=== PATIENT | female | born 1960 | race Caucasian/White ===

== ENCOUNTER 2020-01-30 08:44 | Outpatient (CLI) | payer MEDICAID, SELFPAY ==
--- NOTE | 2020-01-30 08:55 | MM_ITS ---
WS: [id number] Right breast diagnostic digital mammogram, 01/30/2020 Clinical Data: INCONCLUSIVE MAMMOGRAM Comparison: 01/01/2020. Findings: The right axillary nodules are not seen on the compression views of the right axilla. Mole markers we re used to jamila the presence of these subcutaneous densities. There are lymph nodes noted deep to the mole markers. No spiculated masses or clustered calcifications are seen. MM/[place] [id number] Impression: 1. Multiple markers were used to locate superficial nodules. 2. Lymph nodes are noted deep to the mole markers in the right axilla. 3. Right breast ultrasound will be performed. BIRADS: 2-Benign FOLLOW UP: See Report The CAD checker product design was used.
--- NOTE | 2020-01-30 08:55 | US_ITS ---
WS: [id number] Right breast ultrasound, 01/30/2020 Clinical Data: INCONCLUSIVE MAMMOGRAM Comparison: Right breast mammogram, 01/30/2020, mammogram, 01/01/2020. Findings: There are several subcutaneous nodules in the right axilla which by the history are sebaceous cysts. They frequently rupture and release pus. 3 nodules were measured, 0.77 x 0.77 x 1.3 cm, 0.31 x 0.44 x 0.53 cm and 0.63 x 1.04 x 1.15 cm. These subcutaneous nodules are consistent with sebaceous cysts an d have mixed echotexture with a well-defined border. 2 deep lymph nodes were identified and one measu red 0.59 x 1.21 x 1.52 cm and the other 0.61 x 1.29 x 1.62 cm. No spiculated masses nor evidence of c alcifications could be seen. US/US breast RT limited* [id number] Impression: 1. Superficial sebaceous cysts in the right axilla. 2. Axillary lymph nodes. 3. Return to annual screening mammograms. BIRADS: 2-Benign FOLLOW UP: 1 Year Follow-up
== END 2020-01-30 08:45 | disposition home or self-care (01) ==
LOC: RADSHAW 08:51
PROVIDERS: PCP Nurse Practitioner Family; Visit Provider Nurse Practitioner Family
DX: R92.2 Inconclusive mammogram (principal)
CPT/HCPCS: 76642; 77065

== ENCOUNTER 2021-08-27 10:06 | Outpatient (CLI) | payer MEDICARE, MEDICAID, SELFPAY ==
--- NOTE | 2021-08-27 10:12 | MM_ITS ---
WS: [id number] BILATERAL 3D TOMOSYNTHESIS DIGITAL SCREENING MAMMOGRAPHY WITH CAD CLINICAL INFORMATION: SCREENING HISTORY: Screening mammogram. No current complaints. COMPARISON: January 01, 2020 TECHNIQUE: Bilateral CC and MLO views. FINDINGS: Scattered fibroglandular densities bilaterally. No suspicious focal mass, asymmetry, calcifications, or architectural distortion. No evidence of malignancy. MM/[place] [id number] IMPRESSION: BI-RADS: 1-Negative FOLLOW UP: 1 Year Follow-up Recommend return to annual screening mammography.
== END 2021-08-27 10:07 | disposition home or self-care (01) ==
PROVIDERS: PCP Nurse Practitioner Family; Visit Provider Nurse Practitioner Family
DX: Z12.31 Encounter for screening mammogram for malignant neoplasm of breast (principal)
CPT/HCPCS: 77063; 77067

== ENCOUNTER → 2021-09-03 10:29 | Outpatient (BNVA) | payer MEDICARE, MEDICAID, SELFPAY | PROVIDERS: PCP Nurse Practitioner Family; Visit Provider Internal Medicine | DX: E11.649 Type 2 diabetes mellitus with hypoglycemia without coma (principal); E16.0 Drug-induced hypoglycemia without coma; E78.2 Mixed hyperlipidemia; E03.9 Hypothyroidism, unspecified; T38.3X5A Adverse effect of insulin and oral hypoglycemic [antidiabetic] drugs, initial encounter; F17.210 Nicotine dependence, cigarettes, uncomplicated; Z79.4 Long term (current) use of insulin | CPT/HCPCS: 99204 ==

== ENCOUNTER → 2022-03-25 10:06 | Outpatient (BNVA) | payer MEDICARE, MEDICAID, SELFPAY | PROVIDERS: PCP Nurse Practitioner Family; Visit Provider Internal Medicine | DX: E11.649 Type 2 diabetes mellitus with hypoglycemia without coma (principal); E16.0 Drug-induced hypoglycemia without coma; E78.2 Mixed hyperlipidemia; E03.9 Hypothyroidism, unspecified; T38.3X5A Adverse effect of insulin and oral hypoglycemic [antidiabetic] drugs, initial encounter; Z79.4 Long term (current) use of insulin; Z79.890 Hormone replacement therapy | CPT/HCPCS: 99214 ==

== ENCOUNTER → 2022-06-24 09:26 | Outpatient (BNVA) | payer MEDICARE, MEDICAID, SELFPAY | PROVIDERS: PCP Nurse Practitioner Family; Visit Provider Internal Medicine | DX: E11.649 Type 2 diabetes mellitus with hypoglycemia without coma (principal); E78.2 Mixed hyperlipidemia; E03.9 Hypothyroidism, unspecified; E16.0 Drug-induced hypoglycemia without coma; T38.3X5A Adverse effect of insulin and oral hypoglycemic [antidiabetic] drugs, initial encounter; X58.XXXA Exposure to other specified factors, initial encounter; Z79.890 Hormone replacement therapy; Z79.4 Long term (current) use of insulin | CPT/HCPCS: 99214 ==

== ENCOUNTER → 2022-09-30 10:44 | Outpatient (BNVA) | payer MEDICARE, MEDICAID, SELFPAY | PROVIDERS: PCP Nurse Practitioner Family; Visit Provider Internal Medicine | DX: E11.649 Type 2 diabetes mellitus with hypoglycemia without coma (principal); E16.0 Drug-induced hypoglycemia without coma; T38.3X5A Adverse effect of insulin and oral hypoglycemic [antidiabetic] drugs, initial encounter; E78.2 Mixed hyperlipidemia; E03.9 Hypothyroidism, unspecified; Z79.4 Long term (current) use of insulin; X58.XXXA Exposure to other specified factors, initial encounter | CPT/HCPCS: 99214 ==

== ENCOUNTER 2023-09-08 11:59 | Inpatient (IN) | payer MEDICARE, MEDICAID, SELFPAY ==
[2023-09-08] VITALS (30 sets, daily range): BP systolic 129–230; BP diastolic 60–136; PULSE 71–110; RESP 12–18; TEMP 36.6–38.7; O2SAT 90–100; BMI 24.1
--- NOTE | 2023-09-08 12:04 | CT_ITS ---
WS: [id number] CT HEAD TECHNIQUE: Noncontrast CT of the head obtained from the skullbase to the vertex. CLINICAL INFORMATION: Symptoms of acute stroke COMPARISON: None. DLP: [id number] scans at [facility] use at least one of these dose optimization techniques: automated e xposure control; mA and/or kV adjustment per patient size (includes targeted exams where dose is matc hed to clinical indication); or iterative reconstruction. FINDINGS: No evidence of intracranial hemorrhage or mass effect. Ventricular system and basal cisterns are lópez nt. Moderate small vessel changes with moderate parenchymal volume loss. No extra-axial fluid collect ions. No evidence of mass or mass effect. Chronic infarcts in the cerebellum bilaterally. Small vesse l changes in the sean. Low-attenuation change RIGHT brachium pontis most likely chronic but may repre sent subacute ischemia. Dystrophic calcification along the falx. Vascular calcification. Paranasal sinuses are well aerated. Mucosal thickening in the mastoid tips. CT/CT head thrombolytic [id number] IMPRESSION: 1. No evidence of intracranial hemorrhage or mass effect. 2. Chronic infarcts described above. 3. Low-attenuation change along the RIGHT brachium pontis likely chronic but m ay represent subacute ischemia. This can be followed up with MRI if indicated. 4. Vascular calcification. 5. No other suspicious findings Notified Sammy Garica DO at 09/08/2023 12:22 PM.
--- NOTE | 2023-09-08 12:04 | CT_ITS ---
WS: [id number] CTA HEAD AND NECK TECHNIQUE: Contrast enhanced CTA of the head and neck with coronal and sagittal reformatted images an d maximum intensity projection (MIP) images. NASCET criteria utilized. CLINICAL INFORMATION: ACV COMPARISON: None. DLP: [id number] scans at [facility] use at least one of these dose optimization techniques: automated e xposure control; mA and/or kV adjustment per patient size (includes targeted exams where dose is matc hed to clinical indication); or iterative reconstruction. FINDINGS: RIGHT: Mild stenosis of the RIGHT common carotid artery origin. RIGHT common artery is patent. Mild a theromatous plaque RIGHT carotid bulb. No significant RIGHT ICA stenosis. RIGHT ICA remains patent to the skull base. Cavernous carotid calcification. LEFT: Approximately 50% stenosis at the LEFT common carotid artery origin off the arch with eccentric plaque. LEFT common carotid artery remains patent. Mild calcified atheromatous plaque LEFT carotid b ulb extending into the ICA. No significant LEFT ICA stenosis. LEFT ICA remains patent to the skull ba se. Mild cavernous carotid calcification. Both vertebral arteries are patent. LEFT dominant vertebral artery. Dense aortic arch calcification. Proximal subclavian arteries are patent. Tiny RIGHT thyroid nodule. Lung apices are well aerated. Fluid density lesion overlying the upper line midline sternum likely se baceous cyst measuring 1.8 x 2.3 cm. Mild spondylitic changes cervical spine. INTRACRANIAL CTA: Distal vertebral arteries are patent. Basilar artery is patent. Persistent RIGHT CPAS. Normal va scularity to the CPAS territory bilaterally. Normal vascularity to the CHARITY and MCA territories bilaterally. No evidence of proximal flow-limiting stenosis or aneurysm. Patent anterior communicating artery. CT/CT angio headneck* [id number] IMPRESSION: 1. Approximate 50% stenosis at the LEFT common carotid artery origin off the a ortic arch with eccentric plaque. LEFT common carotid artery remains patent. 2. Mild atheromatous plaque both carotid bulbs. No significant ICA stenosis bi laterally. Both ICAs are patent to the skull base. 3. Normal vascularity to the CHARITY and MCA territories bilaterally. No proximal flow-limiting stenosis. 4. LEFT dominant vertebral artery. Smaller but patent RIGHT vertebral artery. Basilar artery is patent. 5. Persistent RIGHT CPAS. Normal vascularity to the CPAS territory bilater ally. Basilar artery is patent. 6. Proximal subclavian arteries are patent.
--- NOTE | 2023-09-08 12:04 | XRR_ITS ---
PROCEDURE INFORMATION: Exam: XR Chest Exam date and time: 09/08/2023 12:33 PM Age: 63 years old Clinical indication: Other: Confusion; Additional info: Stroke. No history of recent trauma or surgery is provided. TECHNIQUE: Imaging protocol: Radiologic exam of the chest. 1image(s) are provided. Views: 1 view. COMPARISON: No previous chest radiograph is currently available to evaluate for interval change or stability. FINDINGS: Lungs: No lobar consolidation is appreciated.There is some subsegmental atelectasis versus post inflammatory reticulonodular scarring demonstrated. There is some ground-glass nodular density of around 5 mm in diameter overlying the right mid lung zone laterally overlying the 2nd anterior rib interspace. There appears to be some subtle air trapping. Pleural spaces: No pneumothorax is appreciated. No significant pleural effusion is currently appreciated. Heart/Mediastinum: The cardiomediastinal silhouette is upper normal in size.This can be seen with central averaging as well as brian enlargement.No cardiac decompensation is appreciated. Diaphragm: There is slight asymmetric left hemidiaphragmatic elevation. Bones/joints: There appear to be some spondylosis and degenerative changes of the shoulders. Osseous alignment is maintained. No displaced fracture or dislocation is appreciated. Soft tissues: No radiopaque foreign body or subcutaneous emphysema is appreciated. Other findings: There is overlying external artifact present. XR/XR chest 1V portable [id number] IMPRESSION: 1. No lobar consolidation or cardiac decompensation is appreciated. 2. There is some subcentimeter nodularity although with increased density and could represent some granulomatous appearance of the right mid lung zone laterally. There is also some subtle hilar prominence for example on the left which could also represent some associated vascular averaging. Consider noncontrast CT chest.
--- NOTE | 2023-09-08 12:14 | W.ED.NEUROSD ---
HPI - Neuro Symptoms/Deficit General: Chief Complaint: Neuro Symptoms/Deficit Stated Complaint: STROKE ALERT Time Seen by Provider: 09/08/23 12:02 Source: patient and EMS Mode of arrival: EMS Limitations: altered mental status History of Present Illness: 63-year-old female presents emergency room with strokelike symptoms. She was brought by transport van to the [facility] when Dr. Pa encounter he felt that she was not at her baseline. She has had a stroke in the past last 1 being about 3 months ago. On arrival here she does have a bit of a left-sided facial droop some aphasia and gaze deficit to the right. We are unable to firmly establish the last known well time Onset (ago): unknown Location: left face and altered Severity: mild Relieving factors: none Exacerbating factors: none Associated symptoms: Deny chest pain, cough, diaphoresis, fevers/chills, headache(s), anorexia, malaise, nausea, seizures, short of breath, syncope, tingling, vertigo, vomiting or weakness Treatments Prior to Arrival: none Review of Systems Const: Denies: malaise or diaphoresis Card: Denies: chest pain or syncope GI: Denies: nausea or vomiting Neuro: Denies: headache(s) or vertigo PFSH ED PFSH: Medical History Amputation toe Atherosclerosis of arteries of extremities Depression Essential hypertension Gangrene Hyperlipidemia Hypoglycemia due to insulin Hypothyroid Major depressive disorder Occlusion of bypass graft Pulmonary emphysema Toe amputee Type 2 diabetes mellitus Surgical History Hx of hysterectomy Family History Father Heart attack Kidney stones Diabetes Mother Diabetes Peroneal DVT (deep venous thrombosis) Social History Smoking and tobacco/nicotine status: current every day tobacco/nicotine user Quit status (tobacco/nicotine): not considering quitting Second hand smoke exposure: Yes Alcohol intake: never Substance/Drug Use: never Adopted: No Caregiver/support person: No Lives independently: Yes Household members: none Housing: Apartment Marital status: Number of children: 1 Highest education level completed: 9th Grade service: No Current occupational status: disabled NIH stroke score NIHSS: Level Of Consciousness - 1a: 0 Level Of Consciousness Questions - 1b: One Correct Level Of Consciousness Commands - 1c: One Correct Best Gaze - 2: Partial Gaze Palsy Visual Bernard - 3: Partial Hemianopia Facial Palsy - 4: Minor Paralysis Motor Arm Right - 5: No Drift Motor Arm Left - 5: No Drift Motor Leg Right - 6: No Drift Motor Leg Left - 6: No Drift Limb Ataxia - 7: Absent Sensory - 8: Normal Best Language - 9: Mild/Moderate Aphasia Dysarthia - 10: Normal Extinction And Inattention - 11: 0 Score: Total Score: 6 Physical Exam Const: COMMON NORMALS: no acute distress GENERAL APPEARANCE: cooperative and comfortable ORIENTATION/CONSCIOUSNESS: Yes awake, Yes oriented to person, Yes oriented to place and Yes oriented to time HENMT: COMMON NORMALS: normocephalic, atraumatic and hearing grossly normal bilaterally HEAD & SCALP: normocephalic and atraumatic Resp: COMMON NORMALS: normal respiratory effort, No retractions, No use of accessory muscles and clear to auscultation bilaterally AUSCULTATION: clear to auscultation bilaterally Cardio: COMMON NORMALS: regular rate, regular rhythm and No murmurs present (Cardio) RATE: regular rate RHYTHM: regular rhythm GI: COMMON NORMALS: Soft to palpation and No hepatosplenomegaly present AUSCULTATION: Yes normoactive bowel sounds PALPATION: Yes Soft to palpation, No Tenderness to palpation present (GI), No Guarding due to palpation present (GI) and Yes No hepatosplenomegaly present Extremity: COMMON NORMALS: normal to inspection, capillary refill normal, no clubbing, cyanosis or edema, no calf tenderness and no pedal edema Neuro: SENSORIUM/ORIENTATION: Yes oriented to person, Yes oriented to place and Yes oriented to time Skin: COMMON NORMALS: no rashes or lesions noted GENERAL SKIN EXAM: no rashes or lesions noted Course Vital Signs: Vital signs: Vital Signs Temperature 97.8 F 09/09/23 15:43 Pulse Rate 69 09/09/23 15:43 Respiratory Rate 17 09/09/23 15:43 Blood Pressure 159/71 09/09/23 15:43 Pulse Oximetry 96 09/09/23 15:43 Oxygen Delivery Me thod Room Air 09/09/23 11:08 MDM - Neuro Symptoms/Deficit Medical Decision Making Patient is not on any anticoagulants were unable to firmly establish a last known well time the retail business development manager thought she seemed to be normal at the time they picked her up however from the nurses description of the conversation and do not think you had a close observation of her at the time. CTA and plain CT show old strokes, no sign of acute hemorrhage. 1 area is questionable for subacute infarct no significant thrombosis noted there is some stenosis at the origin of the left carotid artery Were not able to get a real good last known well time she did get up and get ready to go the doctor this morning last known well that we could verify with a family member was last evening at around 7 or slightly after a retail business development manager thought she was doing okay this morning but did not pay real close attention to her in either event she is out of the window reviewed with Dr. Negron she concurs. No embolic events that are treatable. Will admit patient for new acute stroke discussed with hospitalist orders written Medical Records I reviewed the patient's medical records. Lab Data I reviewed the patient's lab results. 09/09/23 05:20 09/09/23 05:[address] 09/08/23 12:04 IMPRESSION: 1. No evidence of intracranial hemorrhage or mass effect. 2. Chronic infarcts described above. 3. Low-attenuation change along the RIGHT brachium pontis likely chronic but may represent subacute ischemia. This can be followed up with MRI if indicated. 4. Vascular calcification. 5. No other suspicious findings Notified Sammy Garcia DO at 09/08/2023 12:22 PM. Head/Neck CTA 09/08/23 12:04 IMPRESSION: 1. Approximate 50% stenosis at the LEFT common carotid artery origin off the aortic arch with eccentric plaque. LEFT common carotid artery remains patent. 2. Mild atheromatous plaque both carotid bulbs. No significant ICA stenosis bilaterally. Both ICAs are patent to the skull base. 3. Normal vascularity to the CHARITY and MCA territories bilaterally. No proximal flow-limiting stenosis. 4. LEFT dominant vertebral artery. Smaller but patent RIGHT vertebral artery. Basilar artery is patent. 5. Persistent RIGHT CLASSIFICATION ANALYST. Normal vascularity to the CLASSIFICATION ANALYST territory bilaterally. Basilar artery is patent. 6. Proximal subclavian arteries are patent. Chest X-Ray 09/08/23 18:54 IMPRESSION: Equivocal opacity over the right upper lung could be artifactual from positioning, but true parenchymal infiltrate is not excluded. This is an atypical location for evidence of aspiration. Head MRI 09/09/23 11:00 IMPRESSION: 1. No acute findings. 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 2. Chronic/senescent findings as above. Laboratory Results WBC 10.68 10^3/uL (3.29-11.43) 09/08/23 12:14 RBC 3.82 10^6/uL (3.85-5.65) L 09/08/23 12:14 Hgb 11.30 g/dL (11.27-16.99) 09/08/23 12:14 Hct 36.4 % (36-47) 09/08/23 12:14 MCV 95.3 fl (85-98) 09/08/23 12:14 MCH 29.6 pg (27-33) 09/08/23 12:14 MCHC 31.0 g/dL (30-55) 09/08/23 12:14 RDW 12.9 % (12.1-15.1) 09/08/23 12:14 Plt Count 296 10^3/cmm (157-399) 09/08/23 12:14 MPV 10.6 fL (7.4-10.4) H 09/08/23 12:14 Neut % (Auto) 69.5 % 09/08/23 12:14 Lymph % (Auto) 23.8 % 09/08/23 12:14 [place] % (Auto) 5.1 % 09/08/23 12:14 Eos % (Auto) 0.7 % 09/08/23 12:14 Baso % (Auto) 0.4 % 09/08/23 12:14 Neut # (Auto) 7.43 10^3/uL (1.8-7.7) 09/08/23 12:14 Lymph # (Auto) 2.5 10^3/uL (0.8-4.8) 09/08/23 12:14 [place] # (Auto) 0.6 10^3/uL (0.2-0.9) 09/08/23 12:14 Eos # (Auto) 0.1 10^3/uL (0.0-0.8) 09/08/23 12:14 Baso # (Auto) 0.0 10^3/uL (0.0-0.1) 09/08/23 12:14 Nucleated RBC % (auto) 0 % 09/08/23 12:14 Nucleated RBCs # 0.0 /100WBC 09/08/23 12:14 PT 13.80 SECONDS (12.1-14.9) 09/08/23 12:14 INR 1.03 (0.8-1.2) 09/08/23 12:14 APTT 34.4 SECONDS (23.9-36.7) 09/08/23 12:14 Sodium 134 mmol/L (136-145) L 09/08/23 12:14 Potassium 4.3 mmol/L (3.5-5.1) 09/08/23 12:14 Chloride 99 mmol/L (98-107) 09/08/23 12:14 Carbon Dioxide 27 mmol/L (22-29) 09/08/23 12:14 Anion Gap 12.3 (5-19) 09/08/23 12:14 BUN 30 mg/dL (8-23) H 09/08/23 12:14 Creatinine 1.2 mg/dL (0.5-0.9) H 09/08/23 12:14 GFR Calculation 45.1 mL/min (90-130) L 09/08/23 12:14 Glucose 159 mg/dL (65-115) H 09/08/23 12:14 Calculated Osmolality 288 mOsm/kg (285-295) 09/08/23 12:14 Calcium 8.6 mg/dL (8.5-10.5) 09/08/23 12:14 Iron 71 ug/dL (37-145) 09/08/23 12:14 TIBC 174 mcg/dl 09/08/23 12:14 % Saturation 40.8 % (20-50) 09/08/23 12:14 Unsat Iron Binding 103 ug/dL (112-347) L 09/08/23 12:14 Total Bilirubin 0.2 mg/dL (0.15-1.2) 09/08/23 12:14 AST 8 U/L (0-32) 09/08/23 12:14 ALT 11 U/L (0-33) 09/08/23 12:14 Alkaline Phosphatase 99 U/L (35-105) 09/08/23 12:14 Total Protein 5.7 g/dL (6.6-8.7) L 09/08/23 12:14 Albumin 2.9 g/dL (3.5-5.2) L 09/08/23 12:14 Globulin 2.8 g/dL (1.3-4.6) 09/08/23 12:14 Vitamin B12 455 pg/mL (232-1245) 09/08/23 12:14 TSH 3.24 uIU/mL (0.27-4.20) 09/08/23 12:14 All radiology interpretation(s) finalized by discharge Discharge Plan Discharge Patient Disposition: Admitted As Inpatient Admit Provider: Javad Martínez Clinical Impression: Stroke, Diabetes type 2, uncontrolled Condition: Stable Coding Level of Care Code ED Cherry Pitter for Nelly Li
[2023-09-08 12:20] LABS: Basophils % 0.4 %; Eosinophils # 0.1 10^3/uL (0.0-0.8); Eosinophils % 0.7 %; Hematocrit 36.4 % (36-47); Lymphocytes # 2.5 10^3/uL (0.8-4.8); Lymphocytes % 23.8 %; Mean Corpuscular Hemoglobin 29.6 pg (27-33); Mean Corpuscular Volume 95.3 fl (85-98); Mean Platelet Volume 10.6 fL (7.4-10.4); Monocytes # 0.6 10^3/uL (0.2-0.9); Monocytes % 5.1 %; Neutrophils # 7.43 10^3/uL (1.8-7.7); Neutrophils % 69.5 %; Nucleated Red Blood Cells % 0 %; Platelet Count 296 10^3/cmm (157-399); Red Blood Count 3.82 10^6/uL (3.85-5.65); Red Cell Distribution Width 12.9 % (12.1-15.1); White Blood Count 10.68 10^3/uL (3.29-11.43)
[2023-09-08] MEDS: iohexol 350 mg/mL 500 mL Btl (per mL) IV (12:27)
[2023-09-08 12:32] LABS: INR 1.03 (0.8-1.2)
[2023-09-08 12:33] LABS: Partial Thromboplastin Time 34.4 SECONDS (23.9-36.7)
[2023-09-08 12:37] LABS: Alanine Aminotransferase 11 U/L (0-33); Albumin Level 2.9 g/dL (3.5-5.2); Alkaline Phosphatase 99 U/L (35-105); Anion Gap 12.3 (5-19); Aspartate Amino Transferase 8 U/L (0-32); Blood Urea Nitrogen 30 mg/dL (8-23); Calcium 8.6 mg/dL (8.5-10.5); Carbon Dioxide 27 mmol/L (22-29); Chloride 99 mmol/L (98-107); Globulin 2.8 g/dL (1.3-4.6); Glomerular Filtration Rate 45.1 mL/min (90-130); Glucose 159 mg/dL (65-115); Osmolality Calculated 288 mOsm/kg (285-295); Potassium 4.3 mmol/L (3.5-5.1); Sodium 134 mmol/L (136-145); Total Bilirubin 0.2 mg/dL (0.15-1.2); Total Protein 5.7 g/dL (6.6-8.7)
[2023-09-08] MEDS: labetalol 5 mg/mL SDV 20mL 10 MG IVP (12:37)
--- NOTE | 2023-09-08 12:46 | ECG_ITS ---
[facility] Test Date: 2023-09-08 Pat Name: Meena Heredia Department: Room: Gender: Female Bpo Specialist: : [id number] Requested By: Sammy Galaviz Order Number: [id number] Huma MD: Kylie Eddy M.D. Measurements Intervals [place] Rate: 70 P: 49 NH: 165 QRS: 28 QRSD: 84 T: 147 QT: 419 QTc: 453 Interpretive Statements SINUS RHYTHM ST DEVIATION AND MODERATE T-WAVE ABNORMALITY, CONSIDER LATERAL ISCHEMIA [-0.1+ mV T-WAVE IN I/aVL/V5/V6] No previous ECG available for comparison Electronically Signed On 09-08-2023 19:09:09 CDT by Kylie Eddy M.D. [id number]
--- NOTE | 2023-09-08 13:33 | PC.PHAR ---
PT WOULD NOT ANSWER ANY QUESTIONS INCLUDING WHEN LAST TOOK ANY MEDICATIONS. VERIFIED ALL MEDICATIONS, STRENGTHS, AND LAST FILL DATES WITH [employer].
[2023-09-08 14:55] LABS: Iron 71 ug/dL (37-145); Percent Saturation 40.8 % (20-50); Thyroid Stimulating Hormone 3.24 uIU/mL (0.27-4.20); Total Iron Binding Capacity 174 mcg/dl; Unsaturated Iron Binding 103 ug/dL (112-347); Vitamin B12 455 pg/mL (232-1245)
--- NOTE | 2023-09-08 15:28 | P.HP_ITS ---
Providers/Chief Complaint 2 Admitting Physician: Javad Martínez MD Primary Care Provider: Magdalena Song Chief Complaint: STROKE ALERT History of Present Illness Meena Heredia is a 63 year old female with past medical history of hypertension, uncontrolled type 2 diabetes mellitus, hypothyroidism, recurrent strokes with last stroke 3 to 4 months ago who was sent in today to the ER from Dr. Pa/ophthalmology office. As per the son who was at bedside and ER physician it seems last well-known is possibly around 7 AM when patient was picked up by the school bus mechanic to be transported to ophthalmology office. In the office she was found to be disoriented so sent to the ER. While in ER she was found to have left-sided droop, peripheral rightward vision neglect. Patient was deemed not a good candidate for TNKase because of no known last well pisode. In the ER she was found to have elevated blood pressure so she was given 1 dose of IV labetalol. On examination patient is lying comfortably in bed, incoherent n, not following directions, not alert but awake. As per the son she is not recognizing her family members though she is able to state her name. Review of Systems 2 General: Reports: ROS unobtainable due to mental status Medications/Allergies Home Medications Medication Instructions Recorded Confirmed Last Taken Type aspirin 81 mg tablet,delayed 81 mg PO DAILY 09/03/21 09/08/23 Unknown History release clopidogrel 75 mg tablet 75 mg PO DAILY 09/03/21 09/08/23 Unknown History insulin lispro 100 unit/mL See Rx Instructions SUBCUT TID 09/03/21 09/08/23 Unknown History subcutaneous pen (Humalog KwikPen (U-100) Insulin) blood-glucose meter,continuous #1 ea 09/09/21 09/08/23 Unknown Rx (Dexcom G[employer]) blood-glucose sensor (Dexcom G6 #6 ea 08/16/22 09/08/23 Unknown Rx Sensor device) blood-glucose transmitter (Dexcom #1 ea 08/16/22 09/08/23 Unknown Rx G6 Transmitter device) albuterol sulfate 90 mcg/actuation 2 puff inhalation Q6H PRN 09/08/23 09/08/23 Unknown History aerosol inhaler Shortness Of Breath atorvastatin 80 mg tablet 80 mg PO QPM 09/08/23 09/08/23 Unknown History azelastine 137 mcg (0.1 %) nasal 2 spray intranasal BID 09/08/23 09/08/23 Unknown History spray aerosol calcium carbonate 500 mg PO DAILY 09/08/23 09/08/23 Unknown History cholecalciferol (vitamin D3) 1,250 1,250 mcg PO Q7D 09/08/23 09/08/23 Unknown History mcg (50,000 unit) capsule insulin glargine 100 unit/mL (3 20 unit SUBCUT BID 09/08/23 09/08/23 Unknown History mL) subcutaneous pen (Lantus Solostar U-100 Insulin) levothyroxine 50 mcg tablet 50 mcg PO DAILY 09/08/23 09/08/23 Unknown History (Synthroid) losartan 100 mg tablet 100 mg PO DAILY 09/08/23 09/08/23 Unknown History meclizine 12.5 mg tablet 12.5 mg PO TID PRN Dizziness 09/08/23 09/08/23 Unknown History metoprolol tartrate 25 mg tablet 25 mg PO BID 09/08/23 09/08/23 Unknown History venlafaxine 75 mg capsule,extended 75 mg PO DAILY 09/08/23 09/08/23 Unknown History release 24 hr Allergies Allergy/AdvReac Type Severity Reaction Status Date / Time Sulfa (Sulfonamide Allergy swelled up Verified 09/30/22 10:46 Antibiotics) really bad PFSH Acute 2 PFSH: Medical History Amputation toe Atherosclerosis of arteries of extremities Depression Essential hypertension Gangrene Hyperlipidemia Hypoglycemia due to insulin Hypothyroid Major depressive disorder Occlusion of bypass graft Pulmonary emphysema Toe amputee Type 2 diabetes mellitus Surgical History Hx of hysterectomy Family History Father Heart attack Kidney stones Diabetes Mother Diabetes Peroneal DVT (deep venous thrombosis) Social History Smoking and tobacco/nicotine status: current every day tobacco/nicotine user Quit status (tobacco/nicotine): not considering quitting Second hand smoke exposure: Yes Alcohol intake: never Substance/Drug Use: never Adopted: No Caregiver/support person: No Lives independently: Yes Household members: none Housing: Apartment Marital status: Number of children: 1 Highest education level completed: 9th Grade service: No Current occupational status: disabled Vitals/I&O/Wt Last Vital Signs Temp 97.9 F 09/08/23 12:12 Pulse 110 H 09/08/23 15:20 Resp 13 09/08/23 14:20 BP 230/82 09/08/23 15:20 Pulse Ox 95 09/08/23 15:20 O2 Del Method Room Air 09/08/23 12:12 Physical Exam 2 Narrative: General: No acute distress, disoriented, not following directions, awake not alert, mildly agitated HEENT: PERRLA, pupils bilaterally equal and reactive Chest: Normal vesicular breath sounds, no added sounds, equal good air entry bilaterally CVS: S1-S2 regular, no murmurs, no tachycardia, no gallops, no rubs Abdomen: Soft, nontender, no organomegaly, bowel sounds present Neuro: Left-sided facial droop, moving all limbs, not following directions Data 09/08/23 12:14 09/08/23 12:14 A&P Assessment and plan (1) Stroke: History of recurrent strokes in the past. No last known well. Not found to be TNKase candidate as per neurology recommendations. Permissible hypertension for next 24 hours. Goal blood pressure less than 220/120 mmHg. PT/OT/speech therapy. Advance diet accordingly. Currently NPO. 10 mg IV labetalol every 4 hours as needed for systolic blood pressure of more than 220 mmHg. Hold for heart rate of less than [address] head and CTA head and neck results. Plan for MRI brain. Haldol 1 mg every 2 hours as needed. If patient is able to tolerate orally then will start on aspirin 81 mg daily, atorvastatin 80 mg daily otherwise we will plan for rectal aspirin. (2) Diabetes type 2, uncontrolled: Takes 20 units of Lantus along with sliding scale insulin. Insulin sliding scale low-dose protocol every 6 hour, Lantus 10 units twice daily as patient is currently NPO. (3) Hyperlipemia, mixed: (4) Acute kidney injury: Most likely in setting of dehydration. Normal saline at 50 cc/h. Strict input output charting, daily weights. (5) Hypothyroid: Check TSH. Restart home dose of levothyroxine. If needed will plan to switch to IV in 72 hours from last dose. Plan CODE STATUS: Full code N.p.o. Protonix OPD prophylaxis Heparin 5000 every 12 hourly for DVT prophylaxis Discharge plan: Patient lives by herself. Currently patient is incontinent. Discussed with the son that she might need to be placed to SNF for safe discharge planning. Son verbalized understanding. Will discuss further with other family and Giurgius before making a decision. Attestations 2 Medical Necessity Statement*: Admission for more than 2 midnights in setting of acute CVA leading to incoherent send patient LS-spine herself, acute kidney injury once safe discharge planning is sought. Diagnoses Stroke I63.9 Diabetes type 2, uncontrolled Hyperlipemia, mixed E78.2 Acute kidney injury N17.9 Hypothyroid E03.9
[2023-09-08] MEDS: haloperidol inj 5 mg/mL INJ 1 mL 1 MG IVP (15:45)
[2023-09-08 17:25] LABS: Glucose Point of Care 239 mg/dL (70-110)
--- NOTE | 2023-09-08 17:53 | P.PNCC_ITS ---
Stroke Alert Activation ED Arrival Date: 09/08/23 ED Arrival Time: 12:02 Other Last Known Well Infomation: She was brought by [facility] from Dr. Pa office. It was unknown when she was last known well. I took report from [facility] who indicated that personnel at Dr. Pa's office said that when she arrived at the office she was not behaving like her normal self. She was there all morning. She had some type of procedure. When it was clear that she was altered, EMS was called. Someone in the ER was able to contact the business services clerk for the wheelchair bus that brought her to Dr. Pa office and could not get any further information from them. The patient got herself ready and got onto the bus at 7:00 but by the time she got into Dr. Pa office she was not making sense. I was in the emergency department when the ambulance reported they were on their way and I waited and accompanied the patient to CAT scan and took report from EMS. It was clear that she was outside of the window for thrombolytic therapy as she had been in the other office for more than 4-1/[address] Garcia came to the CT suite and we discussed that unless a better approximation of time last known well could be obtained as patient was not a candidate for thrombolytic therapy. She did have receptive and expressive aphasia and right hemiparesis so that if she had vascular occlusions she would be a candidate for embolectomy. Her CT angiogram did not show a large vessel occlusion. She was therefore not a candidate for any type of intervention. Stroke Alert Activated by: [facility] Stroke Alert Activation Time: 11:48 Stroke MD @ Bedside Time: 12:02 NIH Stroke Scale Time: 12:03 NIH stroke score NIHSS: Level Of Consciousness - 1a: 0 Level Of Consciousness Questions - 1b: One Correct (She can say her name but not her birthdate and did not know the date) Level Of Consciousness Commands - 1c: One Correct (She can follow sim ple commands) Best Gaze - 2: Normal Visual Bernard - 3: No Visual Loss Facial Palsy - 4: Minor Paralysis Motor Arm Right - 5: Drift Motor Arm Left - 5: No Drift Motor Leg Right - 6: No Drift Motor Leg Left - 6: No Drift Limb Ataxia - 7: Absent Sensory - 8: Normal (She was not very cooperative for sensory exam) Best Language - 9: Mild/Moderate Aphasia (Some words intact. Expressive and receptive deficit.) Dysarthia - 10: Mild/Moderate Dysarthia Extinction And Inattention - 11: 0 Score: Total Score: 6 Stroke Alert Data/Treatment Time to CT of Head: 12:03 CT Results Time: 12:22 CT Impression: No evidence of intracranial hemorrhage or mass effect. Ventricular system and basal cisterns are patent. Moderate small vessel changes with moderate parenchymal volume loss. No extra-axial fluid collections. No evidence of mass or mass effect. Chronic infarcts in the cerebellum bilaterally. Small vessel changes in the sean. Low-attenuation change RIGHT brachium pontis most likely chronic but may represent subacute ischemia. Dystrophic calcification along the falx. Vascular calcification. Paranasal sinuses are well aerated. Mucosal thickening in the mastoid tips. CT/CT head thrombolytic [id number] IMPRESSION: 1. No evidence of intracranial hemorrha ge or mass effect. 2. Chronic infarcts described above. 3. Low-attenuation change along the RIG HT brachium pontis likely chronic but may represent subacute ischemia. This can be followed up with MRI if indicated. 4. Vascular calcification. 5. No other suspicious findings Notified Sammy Garcia DO at 09/08/2023 12:22 PM. Dictated By: Benedicto Mancia MD Stroke Risk Factors: coronary artery disease, hypertension, diabetes mellitus, smoker and depression tPA Contraindication: tPA Contraindication: Medical contraindication (Unknown time last known well) tPA Admin Prior to Arrival: No Standardized Stroke Orders Used: Yes Critical Care Time Critical Care Time: less than 30 mins A&P Assessment and plan (1) Left middle cerebral artery stroke: Acute left middle cerebral artery stroke with NIH stroke scale score of 6 acutely due to mixed receptive and expressive aphasia and right hemiparesis, arm greater than leg. Risk factors include diabetes, hypertension and smoking. She does not have a large vessel occlusion by CTA and is therefore not a candidate for any type of intervention. Plan antiplatelet therapy and rehabilitation and statin. She can follow-up with her family physician or see me if needed. Coding Level of Care Code Acute Code for Nelly Fwarcenio Diagnoses Left middle cerebral artery stroke I63.512
[2023-09-08] MEDS: aspirin 300 mg Supp PR (18:00)
[2023-09-08] MEDS: sodium chloride 0.9% 1,000 ML 50 ML IV (18:03)
[2023-09-08] MEDS: insulin glargine 100 units/1 mL 20 UNIT SUBCUT (18:03)
[2023-09-08] MEDS: heparin 5,000 unit/mL INJ 1 mL 5000 UNIT SUBCUT (18:03)
[2023-09-08] MEDS: insulin lispro 100 unit/1 mL SUBCUT (18:03)
--- NOTE | 2023-09-08 18:54 | XRR_ITS ---
PROCEDURE INFORMATION: Exam: XR Chest Exam date and time: 09/08/2023 8:52 PM Age: 63 years old Clinical indication: Shortness of breath and other: Vomiting; Additional info: Vomiting, poss aspiration TECHNIQUE: Imaging protocol: Radiologic exam of the chest. Views: 1 view. COMPARISON: CR XR chest 1V portable [id number] 09/08/2023 12:33 PM FINDINGS: Lungs: Lung bases are clear. Pleural spaces: No pleural effusion. No pneumothorax. Heart/Mediastinum: Cardiac silhouette is normal in size for technique. Bones/joints: Age appropriate. Soft tissues: Patient is rotated to the right. There is a skin fold projecting over the upper chest. Hazy opacity in the right upper lung region could represent true parenchymal infiltrate, but summation artifact from overlying soft tissue is not excluded. XR/XR chest 1V portable [id number] IMPRESSION: Equivocal opacity over the right upper lung could be artifactual from positioning, but true parenchymal infiltrate is not excluded. This is an atypical location for evidence of aspiration.
--- NOTE | 2023-09-08 19:51 | PC.NURSE ---
Dr. Martínez notified of blood pressure of 212/66. Ordered that we will not treat due to patient's diagnosis of a stroke. Order to straight cath to obtain UA due to patient being incontinent.
--- NOTE | 2023-09-08 20:03 | PC.NURSE ---
Addendum entered by Sadaf Hankins RN 09/09/23 06:34: Unable to complete all parts of stroke scale as well due to this. Original Note: Unable to do full neuro assessment due to patient not following commands. Patient is seen moving all 4 extremities, however unable to assess and compare strength of each extremity as patient will not follow commands.
[2023-09-08 23:51] LABS: Glucose Point of Care 187 mg/dL (70-110)
[2023-09-09] VITALS (9 sets, daily range): BP systolic 104–160; BP diastolic 55–71; PULSE 61–105; RESP 14–18; TEMP 36.5–37.4; O2SAT 90–96
[2023-09-09] MEDS: acetaminophen 650 mg Supp PR (00:21)
[2023-09-09] MEDS: insulin lispro 100 unit/1 mL SUBCUT ×3 (00:21→21:24)
--- NOTE | 2023-09-09 01:01 | PC.NURSE ---
Lab states urine that was sent to lab spilled in bag that it was sent in. Another urine sample will need to be collected.
[2023-09-09] MEDS: heparin 5,000 unit/mL INJ 1 mL 5000 UNIT SUBCUT ×2 (04:52→18:21)
--- NOTE | 2023-09-09 05:47 | PC.NURSE ---
New urine sample obtained via straight cath at this time and sent to lab.
[2023-09-09 05:51] LABS: Basophils % 0.3 %; Eosinophils % 0.2 %; Hematocrit 39.2 % (36-47); Lymphocytes # 3.1 10^3/uL (0.8-4.8); Lymphocytes % 25.7 %; Mean Corpuscular HGB Conc 31.9 g/dL (30-55); Mean Corpuscular Hemoglobin 30.2 pg (27-33); Mean Corpuscular Volume 94.7 fl (85-98); Mean Platelet Volume 10.3 fL (7.4-10.4); Monocytes % 8.3 %; Neutrophils % 65.2 %; Nucleated Red Blood Cells % 0 %; Platelet Count 350 10^3/cmm (157-399); Red Blood Count 4.14 10^6/uL (3.85-5.65); Red Cell Distribution Width 13.1 % (12.1-15.1); White Blood Count 11.97 10^3/uL (3.29-11.43)
--- NOTE | 2023-09-09 06:00 | USCV_ITS ---
Yan Meena Age: 63 Gender: F : 1960 Exam Date: 09/09/2023 12:14 Ordering Phys: Javad Martínez MD Technologist: Jason Nicolas Exam Location: [facility] [place] Indication: syncope BP: 138 / 55 HR: 60 Rhythm: Sinus Technical Quality: Adequate MEASUREMENTS (Male / Female) Normal Values 2D ECHO LV Diastolic Diameter PLAX 4.1 cm 4.2 - 5.9 / 3.9 - 5.3 cm IVS Diastolic Thickness 1.4 cm 0.6 - 1.0 / 0.6 - 0.9 cm IVS Systolic Thickness 1.8 cm LVPW Diastolic Thickness 1.6 cm 0.6 - 1.0 / 0.6 - 0.9 cm LVPW Systolic Thickness 1.8 cm LVOT Diameter 2.0 cm LV Ejection Fraction 2D Teich 77.2 % LV Ejection Fraction MOD 2C 66.2 % LV Ejection Fraction 2C AL 67.1 % LA Diameter 4.0 cm RA Systolic Volume 4C AL 36.8 ml RA Systolic Volume 4C MOD 36.9 ml LA Sys Volume AL 52.5 cm cubed LA Sys Volume Index AL 28.2 cm cubed/m squared Aorta at Sinotubular Diameter 2.2 cm IVC Diameter 1.3 cm M-MODE LA Ao Ratio MM 1.3 AV Cusp Separation MM 1.9 cm DOPPLER AV Peak Velocity 136.0 cm/s LVOT Peak Velocity 92.0 cm/s AV Area Cont Eq vti 2.1 cm squared AV Area Cont Eq pk 2.1 cm squared MV Peak Velocity 127.0 cm/s MV Area PHT 2.6 cm squared Mitral E to A Ratio 0.7 TR Peak Velocity 203.0 cm/s TR Peak Gradient 16.5 mmHg TR Mean Velocity 160.0 cm/s TR Mean Gradient 11.1 mmHg TR Velocity Time Integral 53.2 cm PV Peak Velocity 82.0 cm/s RV Ejection Time 0.3 s FINDINGS Left Ventricle Left ventricle is normal in size. LV systolic function is normal with EF of 60-65%. No regional wall motion abnormalities are seen. Grade 1 diastolic dysfunction Right Ventricle Normal in size and function Right Atrium Normal in size Left Atrium Normal in size Mitral Valve Structurally normal mitral valve. Trace mitral regurgitation. Aortic Valve Aortic valve is thickened. No significant stenosis or regurgitation Tricuspid Valve Mild tricuspid regurgitation. Insufficient TR jet to evaluate RVSP Pulmonic Valve Not well visualized Pericardium Normal Aorta Normal in size IVC Appears to be normal CONCLUSIONS LV systolic function is normal with EF of 60-65% Grade 1 diastolic dysfunction Trace mitral regurgitation Mild tricuspid regurgitation No comparison studies are available. Kevin Haji MD (Electronically Signed) Final Date: 09 September 2023 21:52 S
[2023-09-09 06:03] LABS: Glucose Point of Care 144 mg/dL (70-110)
[2023-09-09 06:11] LABS: Estmated Average Glucose 180; Hemoglobin A1C 7.9 % (4.0-6.0)
[2023-09-09 06:12] LABS: Chol HDL Ratio 6.61 mg/dL (0.0-4.40); Cholesterol 205 mg/dL (0-200); HDL Cholesterol 31 mg/dL (60-100); LDL Cholesterol Calculated 120 mg/dL (50-129); LDL HDL Ratio 3.87 RATIO (0.00-3.22); Triglycerides 268 mg/dL (0-150)
[2023-09-09 06:13] LABS: Alanine Aminotransferase 11 U/L (0-33); Albumin Level 3.3 g/dL (3.5-5.2); Alkaline Phosphatase 104 U/L (35-105); Anion Gap 12.9 (5-19); Aspartate Amino Transferase 9 U/L (0-32); Blood Urea Nitrogen 29 mg/dL (8-23); Calcium 8.7 mg/dL (8.5-10.5); Carbon Dioxide 25 mmol/L (22-29); Chloride 105 mmol/L (98-107); Creatinine Clr Calc Pharmacy 39.6598; Globulin 3.3 g/dL (1.3-4.6); Glomerular Filtration Rate 34.9 mL/min (90-130); Glucose 147 mg/dL (65-115); Magnesium 1.8 mg/dL (1.7-2.3); Osmolality Calculated 297 mOsm/kg (285-295); Phosphorus 3.9 mg/dL (2.5-4.5); Potassium 3.9 mmol/L (3.5-5.1); Sodium 139 mmol/L (136-145); Total Bilirubin 0.2 mg/dL (0.15-1.2); Total Protein 6.6 g/dL (6.6-8.7)
[2023-09-09 06:25] LABS: Folate Level 3.3 ng/mL (4.8-37.3)
[2023-09-09 07:43] LABS: Amphetamines Screen Urine Negative (Negative); Barbiturates Screen Urine Negative (Negative); Benzodiazepines Screen Urine Negative (Negative); Cocaine Screen Urine Negative (Negative); Opiate Screen Urine Negative (Negative); PCP Screen Urine Negative (Negative); THC Screen Urine Negative (Negative)
[2023-09-09 07:52] LABS: Glucose Urine UA Trace (Normal); Protein Urine 3+ (Negative); Specific Gravity, Urine 1.015 (1.005-1.030); Urine Appearance Slightly Cloudy (CLEAR); Urine Color Yellow (Yellow); pH Urine 5 (5-7)
[2023-09-09 07:53] LABS: Add Urine Culture? Yes; Add Urine Microscopic? YES; Bacteria Urine 2+ /hpf; Bilirubin Urine Neg (Negative); Blood Urine 2+ (Negative); Ketones Urine Negative (Negative); Leukocyte Esterase Urine 1+ (Negative); Nitrate Urine Negative (Negative); RBC Urine 0-4 /hpf (0-2); Squamous Epithelial Cell Urine RARE /hpf (0-5); Urobilinogen Urine Norm (Negative); WBC Urine 25-40 /hpf (0-5)
[2023-09-09] MEDS: venlafaxine ER (24HR) 75 mg Capsule PO (08:27)
[2023-09-09] MEDS: aspirin 300 mg Supp PR (08:27)
[2023-09-09] MEDS: levothyroxine 50 mcg Tablet PO (08:27)
[2023-09-09] MEDS: metoprolol tartrate 25 mg Tablet PO ×2 (08:27→18:22)
[2023-09-09] MEDS: aspirin 81 mg EC Tablet PO (08:28)
[2023-09-09] MEDS: clopidogrel 75 mg Tablet PO (08:28)
[2023-09-09] MEDS: insulin glargine 100 units/1 mL 20 UNIT SUBCUT ×2 (08:29→18:21)
[2023-09-09 10:44] LABS: Glucose Point of Care 169 mg/dL (70-110)
--- NOTE | 2023-09-09 11:00 | MRR_ITS ---
PROCEDURE INFORMATION: Exam: MR Head Without Contrast Exam date and time: 09/09/2023 9:22 AM Age: 63 years old Clinical indication: Stroke-like symptoms; Altered mental status/memory loss and drowsines/somnolence; Additional info: Confusion, drowsiness, AMS, post stroke alert TECHNIQUE: Imaging protocol: Magnetic resonance imaging of the head without contrast. COMPARISON: CT angio headneck* [id number] 09/08/2023 12:00 PM FINDINGS: Brain: . High falcine calcifications re-identified. Previously seen right brachium pontis encephalomalacia related to old infarct is redemonstrated , seen as an area of T2 bright signal abnormality no restricted diffusion. Minimal spotty periventricular and deep subcortical white matter FLAIR signal abnormalities are seen, most likely representing age-appropriate chronic small vessel white matter ischemic changes. Mild age-appropriate global cortical atrophy with associated slight ventricular prominence. No hemorrhage, acute infarct, mass, mass effect, or extra-axial fluid collection. Cerebral ventricles: Slight ventricular prominence as above. Bones: Unremarkable. Paranasal sinuses: Very mild mucosal thickening throughout the ethmoid air cells. Mastoid air cells: Small bilateral mastoid effusions. Orbital cavities: Unremarkable. Soft tissues: Unremarkable. MR/MR head wo con* [id number] IMPRESSION: 1. No acute findings. 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 2. Chronic/senescent findings as above.
[2023-09-09] MEDS: sodium chloride 0.9% 1,000 ML 50 ML IV (13:01)
--- NOTE | 2023-09-09 13:08 | P.PN_ITS ---
Subjective 2 Subjective: No acute events overnight. Patient has remained hemodynamically stable. Blood pressure is better. Tmax of 101.3 overnight. Today morning a lot more awake and alert. Able to have complete conversation. Feeding by herself. Vitals/I&O/Wt Last Vital Signs Temp 97.7 F 09/09/23 11:08 Pulse 105 H 09/09/23 11:08 Resp 16 09/09/23 11:08 BP 138/55 09/09/23 11:08 Pulse Ox 95 09/09/23 11:08 O2 Del Method Room Air 09/09/23 11:08 09/08/23 09/09/23 09/09/23 22:59 06:59 14:59 Intake Total 948.333 / 948.333 Output Total 100 / 100 Balance -100 / -100 948.333 / 948.333 Weight last 48 hrs Weight 75.614 kg Weight 71.849 kg Weight 72.121 kg Physical Exam 2 Narrative: General: No acute distress, AO x 3, mild left facial droop HEENT: PERRLA, pupils bilaterally equal and reactive Chest: Normal vesicular breath sounds, no added sounds, equal good air entry bilaterally CVS: S1-S2 regular, no murmurs, no tachycardia, no gallops, no rubs Abdomen: Soft, nontender, no organomegaly, bowel sounds present Neuro: Left-sided facial droop, moving all limbs, Data 09/09/23 05:20 09/09/23 05:20 Micro: Microbiology 09/09/23 12:55 Blood Culture - Preliminary Blood SPECIMEN COLLECTED 09/09/23 12:50 Blood Culture - Preliminary Blood SPECIMEN COLLECTED A&P Assessment and plan (1) Stroke: History of recurrent strokes in the past. No last known well. Not found to be TNKase candidate as per neurology recommendations. Patient improving. Appreciate PT/OT/speech evaluation. Diet advanced accordingly. Strict blood pressure goal now of 140/90 mmHg. Continue with aspirin 81 mg daily, atorvastatin 80 mg daily. Appreciate A1c, lipid panel. Appreciate MRI results. Echocardiogram done. Results awaited. (2) Diabetes type 2, uncontrolled: Takes 20 units of Lantus twice daily along with sliding scale insulin. A1c 7.9. Insulin sliding scale before meals and at bedtime. Continue with Lantus 20 units twice daily. (3) Hyperlipemia, mixed: Appreciate lipid panel. Uncontrolled hypertriglyceridemia. Already on atorvastatin 80 mg nightly. Will add ezetimibe. (4) Acute kidney injury: Creatinine worsening to 1.5 today. Strict input charting, daily weights. Medical reconciliation done for nephrotoxic drugs. Hold off on home dose of losartan. Check urine lites, urine creatinine, urine eosinophils. Increased NS to 100 cc/h. Repeat BMP in AM. (5) Hypothyroid: Appreciate TSH. Restart home dose of levothyroxine. (6) UTI (urinary tract infection): Febrile episode overnight. Check urine culture. Check blood culture. Check MRSA swab. Start on Zosyn. Pneumonia less likely as patient is on room air. Will de-escalate antibiotics as per culture results. Plan Hypertension: Goal blood pressure less than 140/90 mmHg now. Continue with home dose of metoprolol. Patient also takes losartan 100 mg oral daily at home. For now patient is in TIMOTHY so we will hold off on losartan. Will uptitrate or add another medication depending on goal blood pressures. Resubmit with home medications including Effexor. CODE STATUS: Full code. Son Eric Coy will be the DPOA. Advanced as per speech evaluation of dysphagia level 7. Protonix OPD prophylaxis Heparin 5000 every 12 hourly for DVT prophylaxis Discharge plan: Patient lives by herself. Patient is more awake and alert. PT evaluation states patient will do well with home exercise program. Will discuss in detail with the patient about home with home health versus SNF placement for a short while. Attestations 2 Medical Necessity Statement*: Requires further hospitalization for CVA, TIMOTHY, UTI while safe discharge planning is sought. Diagnoses Stroke I63.9 Diabetes type 2, uncontrolled Hyperlipemia, mixed E78.2 Acute kidney injury N17.9 Hypothyroid E03.9 UTI (urinary tract infection) N39.0
[2023-09-09] MEDS: piperacillin-tazobactam 3.375 GM in sodium chloride 0.9% (plus) 50 ML IV ×2 (13:54→20:33)
[2023-09-09] MEDS: ezetimibe 10 mg Tablet PO (13:55)
[2023-09-09 16:57] LABS: Glucose Point of Care 131 mg/dL (70-110)
[2023-09-09] MEDS: atorvastatin 40 mg Tablet 80 MG PO (18:22)
[2023-09-09 20:55] LABS: Glucose Point of Care 203 mg/dL (70-110)
[2023-09-10] VITALS (12 sets, daily range): BP systolic 170–207; BP diastolic 53–75; PULSE 59–75; RESP 17–19; TEMP 36.7–36.8; O2SAT 92–94
[2023-09-10] MEDS: sodium chloride 0.9% 1,000 ML 100 ML IV (02:39)
[2023-09-10] MEDS: piperacillin-tazobactam 3.375 GM in sodium chloride 0.9% (plus) 50 ML IV ×3 (04:14→21:05)
[2023-09-10] MEDS: heparin 5,000 unit/mL INJ 1 mL 5000 UNIT SUBCUT ×2 (04:19→18:13)
[2023-09-10 06:12] LABS: Basophils % 0.2 %; Eosinophils # 0.2 10^3/uL (0.0-0.8); Eosinophils % 1.6 %; Hematocrit 37.7 % (36-47); Lymphocytes % 30.5 %; Mean Corpuscular HGB Conc 31.8 g/dL (30-55); Mean Corpuscular Hemoglobin 29.6 pg (27-33); Mean Corpuscular Volume 92.9 fl (85-98); Mean Platelet Volume 10.5 fL (7.4-10.4); Monocytes # 0.7 10^3/uL (0.2-0.9); Monocytes % 7.1 %; Neutrophils # 5.84 10^3/uL (1.8-7.7); Neutrophils % 60.1 %; Nucleated Red Blood Cells % 0 %; Platelet Count 334 10^3/cmm (157-399); Red Blood Count 4.06 10^6/uL (3.85-5.65); Red Cell Distribution Width 12.8 % (12.1-15.1); White Blood Count 9.72 10^3/uL (3.29-11.43)
[2023-09-10 06:30] LABS: Alanine Aminotransferase 11 U/L (0-33); Albumin Level 3.1 g/dL (3.5-5.2); Alkaline Phosphatase 91 U/L (35-105); Anion Gap 13.7 (5-19); Aspartate Amino Transferase 10 U/L (0-32); Blood Urea Nitrogen 31 mg/dL (8-23); Calcium 8.4 mg/dL (8.5-10.5); Carbon Dioxide 23 mmol/L (22-29); Chloride 105 mmol/L (98-107); Creatinine Clr Calc Pharmacy 43.5397; Glomerular Filtration Rate 37.7 mL/min (90-130); Glucose 72 mg/dL (65-115); Osmolality Calculated 291 mOsm/kg (285-295); Potassium 3.7 mmol/L (3.5-5.1); Sodium 138 mmol/L (136-145); Total Bilirubin 0.2 mg/dL (0.15-1.2); Total Protein 6.1 g/dL (6.6-8.7)
[2023-09-10 06:32] LABS: Glucose Point of Care 68 mg/dL (70-110)
[2023-09-10] MEDS: hyDRALAzine 20 mg/mL INJ 1 mL 10 MG IVP (08:15)
[2023-09-10] MEDS: venlafaxine ER (24HR) 75 mg Capsule PO (08:15)
[2023-09-10] MEDS: levothyroxine 50 mcg Tablet PO (08:15)
[2023-09-10] MEDS: ezetimibe 10 mg Tablet PO (08:16)
[2023-09-10] MEDS: losartan 50 mg Tablet 100 MG PO (08:16)
[2023-09-10] MEDS: aspirin 81 mg EC Tablet PO (08:17)
[2023-09-10] MEDS: clopidogrel 75 mg Tablet PO (08:17)
[2023-09-10] MEDS: metoprolol tartrate 25 mg Tablet PO ×2 (08:17→18:13)
[2023-09-10] MEDS: insulin glargine 100 units/1 mL 20 UNIT SUBCUT ×2 (08:21→18:17)
[2023-09-10] MEDS: amlodipine 10 mg Tablet PO (10:51)
[2023-09-10 12:14] LABS: Glucose Point of Care 166 mg/dL (70-110)
[2023-09-10] MEDS: insulin lispro 100 unit/1 mL SUBCUT ×3 (12:27→21:36)
--- NOTE | 2023-09-10 14:53 | P.PN_ITS ---
Subjective 2 Subjective: No acute events overnight. Patient seen sitting up in chair today. Back to baseline mentation. No further facial droop. Blood pressure is elevated to more than 200 systolic. Patient does not check her blood pressures at home. Vitals/I&O/Wt Last Vital Signs Temp 98.1 F 09/10/23 10:56 Pulse 64 09/10/23 10:56 Resp 19 H 09/10/23 10:56 BP 202/68 09/10/23 10:56 Pulse Ox 94 09/10/23 10:56 O2 Del Method Room Air 09/10/23 10:56 09/09/23 09/10/23 09/10/23 22:59 06:59 14:59 Intake Total 668.333 / 1616.666 656.667 / 2273.333 1730 / 1730 Balance 668.333 / 1616.666 656.667 / 2273.333 1730 / 1730 Weight last 48 hrs Weight 78.426 kg Weight 76.26 kg Weight 75.614 kg Weight 71.849 kg Weight 72.121 kg Physical Exam 2 Narrative: General: No acute distress, AO x 3, HEENT: PERRLA, pupils bilaterally equal and reactive Chest: Normal vesicular breath sounds, no added sounds, equal good air entry bilaterally CVS: S1-S2 regular, no murmurs, no tachycardia, no gallops, no rubs Abdomen: Soft, nontender, no organomegaly, bowel sounds present Neuro: Left-sided facial droop, moving all limbs, Data 09/10/23 05:52 09/10/23 05:52 Micro: Microbiology 09/09/23 12:55 Blood Culture - Preliminary Blood NEGATIVE TO DATE 09/09/23 12:50 Blood Culture - Preliminary Blood NEGATIVE TO DATE 09/09/23 06:15 Urine Culture - Preliminary Urine,Clean Catch Gram Negative Rods A&P Assessment and plan (1) Stroke: History of recurrent strokes in the past. No last known well. Not found to be TNKase candidate as per neurology recommendations. Patient improving. Appreciate PT/OT/speech evaluation. Diet advanced accordingly. Strict blood pressure goal now of 140/90 mmHg. Continue with aspirin 81 mg daily, atorvastatin 80 mg daily. Appreciate A1c, lipid panel. Appreciate MRI results. Echocardiogram done. (2) Uncontrolled hypertension: Hypertension: Goal blood pressure less than 140/90 mmHg now. Blood pressure elevated. Continue with home dose of metoprolol. Restarted home dose of losartan. Added amlodipine 10 mg oral daily along with hydralazine 25 mg 3 times daily. Will uptitrate as per goal blood pressures. Hydralazine 10 mg IV every 4 hours as needed for systolic blood pressure of more than 160 mmHg (3) Acute kidney injury: Creatinine stable around 1.4. Do not have baseline. Most likely patient baseline creatinine is 1.2-1.4. Appropriate urine output. Strict input charting, daily weights. Medical reconciliation done for nephrotoxic drugs. Patient is euvolemic. Oral intake is increasing. Stop IV fluids. Repeat BMP in AM. (4) UTI (urinary tract infection): Febrile episode overnight. Blood cultures so far negative. Urine culture growing gram-negative rods. Will await identification and sensitivities. MRSA swab ordered not collected yet. Continue with IV Zosyn. Pneumonia less likely as patient is on room air. Will de-escalate antibiotics as per culture results. (5) Diabetes type 2, uncontrolled: Takes 20 units of Lantus twice daily along with sliding scale insulin. A1c 7.9. Blood sugars well-controlled for now. Insulin sliding scale before meals and at bedtime. Continue with Lantus 20 units twice daily. (6) Hyperlipemia, mixed: Appreciate lipid panel. Uncontrolled hypertriglyceridemia. Already on atorvastatin 80 mg nightly. Added ezetimibe. (7) Hypothyroid: Appreciate TSH. Restart home dose of levothyroxine. Plan Continue with home medications including Effexor. CODE STATUS: Full code. Son Eric Coy will be the DPOA. Advanced as per speech evaluation of dysphagia level 7. Protonix OPD prophylaxis Heparin 5000 every 12 hourly for DVT prophylaxis Discharge plan: Patient lives by herself. Patient is more awake and alert. PT evaluation states patient will do well with home exercise program. Patient still thinking about home with home health versus possible placement to SNF. Also talked to case management for further before making any further decisions. Attestations 2 Medical Necessity Statement*: Requires further hospitalization for management of uncontrolled hypertension, UTI in a patient who was initially admitted for stroke while safe discharge planning is sought Diagnoses Stroke I63.9 Uncontrolled hypertension I10 Acute kidney injury N17.9 UTI (urinary tract infection) N39.0 Diabetes type 2, uncontrolled Hyperlipemia, mixed E78.2 Hypothyroid E03.9
[2023-09-10] MEDS: hyDRALAzine 25 mg Tablet PO ×2 (14:54→21:05)
[2023-09-10 16:16] LABS: Glucose Point of Care 186 mg/dL (70-110)
[2023-09-10] MEDS: atorvastatin 40 mg Tablet 80 MG PO (18:13)
[2023-09-10 20:24] LABS: Glucose Point of Care 252 mg/dL (70-110)
[2023-09-11] VITALS (7 sets, daily range): BP systolic 164–199; BP diastolic 65–70; PULSE 58–70; RESP 16–18; TEMP 36.4–36.7; O2SAT 94–97
[2023-09-11 03:56] LABS: Basophils % 0.3 %; Eosinophils # 0.2 10^3/uL (0.0-0.8); Eosinophils % 1.7 %; Hematocrit 38.7 % (36-47); Lymphocytes # 2.9 10^3/uL (0.8-4.8); Lymphocytes % 30.1 %; Mean Corpuscular HGB Conc 31.3 g/dL (30-55); Mean Corpuscular Hemoglobin 29.3 pg (27-33); Mean Corpuscular Volume 93.7 fl (85-98); Mean Platelet Volume 10.9 fL (7.4-10.4); Monocytes # 0.7 10^3/uL (0.2-0.9); Monocytes % 7.8 %; Neutrophils # 5.69 10^3/uL (1.8-7.7); Neutrophils % 59.9 %; Nucleated Red Blood Cells % 0 %; Platelet Count 349 10^3/cmm (157-399); Red Blood Count 4.13 10^6/uL (3.85-5.65); Red Cell Distribution Width 12.7 % (12.1-15.1)
[2023-09-11 04:36] LABS: Alanine Aminotransferase 11 U/L (0-33); Albumin Level 3.3 g/dL (3.5-5.2); Alkaline Phosphatase 94 U/L (35-105); Anion Gap 14.9 (5-19); Aspartate Amino Transferase 11 U/L (0-32); Blood Urea Nitrogen 29 mg/dL (8-23); Calcium 8.8 mg/dL (8.5-10.5); Carbon Dioxide 22 mmol/L (22-29); Chloride 110 mmol/L (98-107); Globulin 3.2 g/dL (1.3-4.6); Glomerular Filtration Rate 37.7 mL/min (90-130); Glucose 93 mg/dL (65-115); Osmolality Calculated 302 mOsm/kg (285-295); Potassium 3.9 mmol/L (3.5-5.1); Sodium 143 mmol/L (136-145); Total Bilirubin 0.2 mg/dL (0.15-1.2); Total Protein 6.5 g/dL (6.6-8.7)
[2023-09-11] MEDS: piperacillin-tazobactam 3.375 GM in sodium chloride 0.9% (plus) 50 ML IV ×3 (04:45→21:22)
[2023-09-11] MEDS: heparin 5,000 unit/mL INJ 1 mL 5000 UNIT SUBCUT ×2 (04:45→17:29)
[2023-09-11 06:23] LABS: Glucose Point of Care 104 mg/dL (70-110)
[2023-09-11] MEDS: hyDRALAzine 20 mg/mL INJ 1 mL 10 MG IVP (06:33)
[2023-09-11] MEDS: ezetimibe 10 mg Tablet PO (08:18)
[2023-09-11] MEDS: losartan 50 mg Tablet 100 MG PO (08:18)
[2023-09-11] MEDS: levothyroxine 50 mcg Tablet PO (08:19)
[2023-09-11] MEDS: amlodipine 10 mg Tablet PO (08:19)
[2023-09-11] MEDS: hyDRALAzine 25 mg Tablet PO (08:19)
[2023-09-11] MEDS: metoprolol tartrate 25 mg Tablet PO ×2 (08:19→17:30)
[2023-09-11] MEDS: aspirin 81 mg EC Tablet PO (08:19)
[2023-09-11] MEDS: clopidogrel 75 mg Tablet PO (08:19)
[2023-09-11] MEDS: venlafaxine ER (24HR) 75 mg Capsule PO (08:19)
[2023-09-11] MEDS: insulin glargine 100 units/1 mL 20 UNIT SUBCUT ×2 (08:20→17:29)
[2023-09-11 11:58] LABS: Glucose Point of Care 127 mg/dL (70-110)
--- NOTE | 2023-09-11 13:41 | P.PN_ITS ---
Subjective 2 Subjective: seen this am no acute events overnight awaiting urine culture Vitals/I&O/Wt Last Vital Signs Temp 98.1 F 09/11/23 12:00 Pulse 66 09/11/23 12:00 Resp 18 09/11/23 12:00 BP 173/66 09/11/23 12:00 Pulse Ox 95 09/11/23 12:00 O2 Del Method Room Air 09/11/23 12:00 09/10/23 09/11/23 09/11/23 22:59 06:59 14:59 Intake Total 650 / 2380 170 / 2550 650 / 650 Balance 650 / 2380 170 / 2550 650 / 650 Weight last 48 hrs Weight 77.111 kg Weight 78.426 kg Weight 76.26 kg Physical Exam 2 Narrative: General: No acute distress, AO x 3, HEENT: PERRLA, pupils bilaterally equal and reactive Chest: Normal vesicular breath sounds, no added sounds, equal good air entry bilaterally CVS: S1-S2 regular, no murmurs, no tachycardia, no gallops, no rubs Abdomen: Soft, nontender, bowel sounds present Neuro: Left-sided facial droop, moving all limbs, Data 09/11/23 02:56 09/11/23 02:56 Micro: Microbiology 09/09/23 06:15 Urine Culture - Final Urine,Clean Catch Klebsiella pneumoniae Klebsiella pneumoniae#2 09/09/23 12:55 Blood Culture - Preliminary Blood NEGATIVE TO DATE 09/09/23 12:50 Blood Culture - Preliminary Blood NEGATIVE TO DATE A&P Assessment and plan (1) Stroke: History of recurrent strokes in the past. No last known well. Not found to be TNKase candidate as per neurology recommendations. Patient improving. Appreciate PT/OT/speech evaluation. Diet advanced accordingly. Strict blood pressure goal now of 140/90 mmHg. Continue with aspirin 81 mg daily, atorvastatin 80 mg daily. Appreciate A1c, lipid panel. Appreciate MRI results. Echocardiogram done. (2) Uncontrolled hypertension: Hypertension: Goal blood pressure less than 140/90 mmHg now. Blood pressure elevated. Continue with home dose of metoprolol. Restarted home dose of losartan. Added amlodipine 10 mg oral daily along with hydralazine 25 mg 3 times daily. Will uptitrate as per goal blood pressures. Hydralazine 10 mg IV every 4 hours as needed for systolic blood pressure of more than 160 mmHg (3) Acute kidney injury: Creatinine stable around 1.4. Do not have baseline. Most likely patient baseline creatinine is 1.2-1.4. Appropriate urine output. Strict input charting, daily weights. Medical reconciliation done for nephrotoxic drugs. Patient is euvolemic. Oral intake is increasing. Stop IV fluids. Repeat BMP in AM. (4) UTI (urinary tract infection): Febrile episode overnight. Blood cultures so far negative. Urine culture growing gram-negative rods. Will await identification and sensitivities. MRSA swab ordered not collected yet. Continue with IV Zosyn. Pneumonia less likely as patient is on room air. Will de-escalate antibiotics as per culture results. (5) Diabetes type 2, uncontrolled: Takes 20 units of Lantus twice daily along with sliding scale insulin. A1c 7.9. Blood sugars well-controlled for now. Insulin sliding scale before meals and at bedtime. Continue with Lantus 20 units twice daily. (6) Hyperlipemia, mixed: Appreciate lipid panel. Uncontrolled hypertriglyceridemia. Already on atorvastatin 80 mg nightly. Added ezetimibe. (7) Hypothyroid: Appreciate TSH. Restart home dose of levothyroxine. Plan Continue with home medications including Effexor. CODE STATUS: Full code. Son Eric Coy will be the DPOA. Advanced as per speech evaluation of dysphagia level 7. Protonix OPD prophylaxis Heparin 5000 every 12 hourly for DVT prophylaxis Discharge plan: Patient lives by herself. Patient is more awake and alert. PT evaluation states patient will do well with home exercise program. Patient still thinking about home with home health versus possible placement to SNF. Also talked to case management for further before making any further decisions. Todays plan 09/10 Awaiting urine culture transition to oral abx once culture available hydralazine 50 tid amlodipine 10 daily losartan 100 daily Attestations 2 Medical Necessity Statement*: Requires further hospitalization for management of uncontrolled hypertension, UTI in a patient who was initially admitted for stroke while safe discharge planning is sought Diagnoses Stroke I63.9 Uncontrolled hypertension I10 Acute kidney injury N17.9 UTI (urinary tract infection) N39.0 Diabetes type 2, uncontrolled Hyperlipemia, mixed E78.2 Hypothyroid E03.9
[2023-09-11] MEDS: hyDRALAzine 25 mg Tablet 50 MG PO ×2 (14:07→21:21)
--- NOTE | 2023-09-11 15:35 | PC.SOCIAL ---
IMM Update IMM updated, copy given to patient and placed in chart.
[2023-09-11 17:16] LABS: Glucose Point of Care 145 mg/dL (70-110)
[2023-09-11] MEDS: insulin lispro 100 unit/1 mL SUBCUT ×2 (17:30→21:22)
[2023-09-11] MEDS: atorvastatin 40 mg Tablet 80 MG PO (17:30)
[2023-09-11 20:51] LABS: Glucose Point of Care 246 mg/dL (70-110)
[2023-09-12] VITALS (7 sets, daily range): BP systolic 154–206; BP diastolic 53–68; PULSE 64–88; RESP 17–18; TEMP 36.3–37.2; O2SAT 94–97
--- NOTE | 2023-09-12 00:15 | PM.MISC ---
Miscellaneous Note Purpose of Documentation: Called regarding BP of 206/68. Reviewed chart. No acute stroke. BP goal 135/85. Patient not on DRAKE presumably due to creatinine of 1.4. Patient should be placed on hydralazine with Imdur as replacement. Will increase hydralazine and add Imdur for the morning. Ideally with titration of hydralazine and Imdur would not need Norvasc on discharge.
[2023-09-12] MEDS: hyDRALAzine 50 mg Tablet PO (00:55)
[2023-09-12] MEDS: piperacillin-tazobactam 3.375 GM in sodium chloride 0.9% (plus) 50 ML IV (05:15)
[2023-09-12] MEDS: heparin 5,000 unit/mL INJ 1 mL 5000 UNIT SUBCUT (05:15)
[2023-09-12 06:32] LABS: Glucose Point of Care 124 mg/dL (70-110)
[2023-09-12] MEDS: metoprolol tartrate 25 mg Tablet PO (08:54)
[2023-09-12] MEDS: ezetimibe 10 mg Tablet PO (08:54)
[2023-09-12] MEDS: amlodipine 10 mg Tablet PO (08:54)
[2023-09-12] MEDS: levothyroxine 50 mcg Tablet PO (08:54)
[2023-09-12] MEDS: aspirin 81 mg EC Tablet PO (08:54)
[2023-09-12] MEDS: clopidogrel 75 mg Tablet PO (08:54)
[2023-09-12] MEDS: venlafaxine ER (24HR) 75 mg Capsule PO (08:54)
[2023-09-12] MEDS: losartan 50 mg Tablet 100 MG PO (08:54)
[2023-09-12] MEDS: hyDRALAzine 25 mg Tablet 100 MG PO (08:55)
[2023-09-12] MEDS: isosorbide mononitrate ER 30 mg Tablet PO (08:55)
[2023-09-12] MEDS: insulin glargine 100 units/1 mL 20 UNIT SUBCUT (08:58)
--- NOTE | 2023-09-12 11:04 | P.DS_ITS ---
Discharge Providers Date of Admission: 09/08/23 15:01 Date of Discharge: September 12, 2023 Attending Provider at Admission: Javad Martínez MD Attending Provider at Discharge: Lydia Lira MD Primary Care Provider: Magdalena Song Diagnoses at Discharge Discharge Diagnosis (1) Stroke: Status: Acute (2) Uncontrolled hypertension: Status: Resolved (3) Acute kidney injury: Status: Resolved (4) UTI (urinary tract infection): Status: Acute (5) Diabetes type 2, uncontrolled: Status: Acute (6) Hyperlipemia, mixed: Status: Acute (7) Hypothyroid: Status: Acute Reason for Visit Reason for Visit: STROKE ALERT Hospital Course Hospital Course patient 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 She was diagnosed with stroke this admission and has a history of recurrent strokes in the past. She was not a TNKase candidate as per neurology recommendations. MRI was completed. Please see results. Patient did have uncontrolled hypertension for which she was placed on hydralazine, amlodipine, Imdur. Diagnosed with UTI and placed on Zosyn during hospitalization. Was discharged on oral antibiotics. Rehab was recommended however during hospitalization patient improved significantly and therefore was sent home. she was given appropriate outpatient f/u at discharge. Physical Exam Narrative: General: No acute distress, AO x 3, HEENT: PERRLA, pupils bilaterally equal and reactive Chest: Normal vesicular breath sounds, no added sounds, equal good air entry bi laterally CVS: S1-S2 regular, no murmurs, no tachycardia, no gallops, no rubs Abdomen: Soft, nontender, bowel sounds present Neuro: Left-sided facial droop, moving all limbs, Discharge Data Studies Completed and Pending Completed Studies During Hospitalization Category Date Time Status CT angio headneck* [id number] Stat Cat Scan 09/08/23 12:[address] head thrombolytic [id number] Stat Cat Scan 09/08/23 12:04 Completed CXRP [XR chest 1V portable [id number]] Urgent Exams 09/08/23 18:54 Completed XR chest 1V portable [id number] Stat Exams 09/08/23 12:04 Completed MR head wo con* [id number] Routine MRI 09/09/23 11:00 Completed CV. echo complete* [id number] Routine Ultrasound 09/09/23 06:00 Completed Pending at discharge Category Date Time Status Blood Culture Stat Lab 09/09/23 12:55 Results MRSA [Methicillin Resistant S.aureu] Routine Lab 09/09/23 21:09 Received Radiology Impressions Head CT 09/08/23 12:04 IMPRESSION: 1. No evidence of intracranial hemorrhage or mass effect. 2. Chronic infarcts described above. 3. Low-attenuation change along the RIGHT brachium pontis likely chronic but may represent subacute ischemia. This can be followed up with MRI if indicated. 4. Vascular calcification. 5. No other suspicious findings Notified Sammy Garcia DO at 09/08/2023 12:22 PM. Head/Neck CTA 09/08/23 12:04 IMPRESSION: 1. Approximate 50% stenosis at the LEFT common carotid artery origin off the aortic arch with eccentric plaque. LEFT common carotid artery remains patent. 2. Mild atheromatous plaque both carotid bulbs. No significant ICA stenosis bilaterally. Both ICAs are patent to the skull base. 3. Normal vascularity to the CHARITY and MCA territories bilaterally. No proximal flow-limiting stenosis. 4. LEFT dominant vertebral artery. Smaller but patent RIGHT vertebral artery. Basilar artery is patent. 5. Persistent RIGHT SUPERVISOR FINISHING. Normal vascularity to the SUPERVISOR FINISHING territory bilaterally. Basilar artery is patent. 6. Proximal subclavian arteries are patent. Chest X-Ray 09/08/23 18:54 IMPRESSION: Equivocal opacity over the right upper lung could be artifactual from positioning, but true parenchymal infiltrate is not excluded. This is an atypical location for evidence of aspiration. Head MRI 09/09/23 11:00 IMPRESSION: 1. No acute findings. 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 2. Chronic/senescent findings as above. Laboratory Results WBC 9.50 10^3/uL (3.29-11.43) 09/11/23 02:56 RBC 4.13 10^6/uL (3.85-5.65) 09/11/23 02:56 Hgb 12.10 g/dL (11.27-16.99) 09/11/23 02:56 Hct 38.7 % (36-47) 09/11/23 02:56 MCV 93.7 fl (85-98) 09/11/23 02:56 MCH 29.3 pg (27-33) 09/11/23 02:56 MCHC 31.3 g/dL (30-55) 09/11/23 02:56 RDW 12.7 % (12.1-15.1) 09/11/23 02:56 Plt Count 349 10^3/cmm (157-399) 09/11/23 02:56 MPV 10.9 fL (7.4-10.4) H 09/11/23 02:56 Neut % (Auto) 59.9 % 09/11/23 02:56 Lymph % (Auto) 30.1 % 09/11/23 02:56 [place] % (Auto) 7.8 % 09/11/23 02:56 Eos % (Auto) 1.7 % 09/11/23 02:56 Baso % (Auto) 0.3 % 09/11/23 02:56 Neut # (Auto) 5.69 10^3/uL (1.8-7.7) 09/11/23 02:56 Lymph # (Auto) 2.9 10^3/uL (0.8-4.8) 09/11/23 02:56 [place] # (Auto) 0.7 10^3/uL (0.2-0.9) 09/11/23 02:56 Eos # (Auto) 0.2 10^3/uL (0.0-0.8) 09/11/23 02:56 Baso # (Auto) 0.0 10^3/uL (0.0-0.1) 09/11/23 02:56 Nucleated RBC % (auto) 0 % 09/11/23 02:56 Nucleated RBCs # 0.0 /100WBC 09/11/23 02:56 PT 13.80 SECONDS (12.1-14.9) 09/08/23 12:14 INR 1.03 (0.8-1.2) 09/08/23 12:14 APTT 34.4 SECONDS (23.9-36.7) 09/08/23 12:14 Sodium 143 mmol/L (136-145) 09/11/23 02:56 Potassium 3.9 mmol/L (3.5-5.1) 09/11/23 02:56 Chloride 110 mmol/L (98-107) H 09/11/23 02:56 Carbon Dioxide 22 mmol/L (22-29) 09/11/23 02:56 Anion Gap 14.9 (5-19) 09/11/23 02:56 BUN 29 mg/dL (8-23) H 09/11/23 02:56 Creatinine 1.4 mg/dL (0.5-0.9) H 09/11/23 02:56 GFR Calculation 37.7 mL/min (90-130) L 09/11/23 02:56 Glucose 93 mg/dL (65-115) 09/11/23 02:56 POC Glucose 124 mg/dL (70-110) H 09/12/23 06:27 Estimat Average Glucose 180 09/09/23 05:20 Hemoglobin A1c 7.9 % (4.0-6.0) H 09/09/23 05:20 Calculated Osmolality 302 mOsm/kg (285-295) H 09/11/23 02:56 Calcium 8.8 mg/dL (8.5-10.5) 09/11/23 02:56 Phosphorus 3.9 mg/dL (2.5-4.5) 09/09/23 05:20 Magnesium 1.8 mg/dL (1.7-2.3) 09/09/23 05:20 Iron 71 ug/dL (37-145) 09/08/23 12:14 TIBC 174 mcg/dl 09/08/23 12:14 % Saturation 40.8 % (20-50) 09/08/23 12:14 Unsat Iron Binding 103 ug/dL (112-347) L 09/08/23 12:14 Total Bilirubin 0.2 mg/dL (0.15-1.2) 09/11/23 02:56 AST 11 U/L (0-32) 09/11/23 02:56 ALT 11 U/L (0-33) 09/11/23 02:56 Alkaline Phosphatase 94 U/L (35-105) 09/11/23 02:56 Total Protein 6.5 g/dL (6.6-8.7) L 09/11/23 02:56 Albumin 3.3 g/dL (3.5-5.2) L 09/11/23 02:56 Globulin 3.2 g/dL (1.3-4.6) 09/11/23 02:56 Triglycerides 268 mg/dL (0-150) H 09/09/23 05:20 Cholesterol 205 mg/dL (0-200) H 09/09/23 05:20 LDL Cholesterol, Calc 120 mg/dL (50-129) 09/09/23 05:20 HDL Cholesterol 31 mg/dL (60-100) L 09/09/23 05:20 LDL/HDL Ratio 3.87 RATIO (0.00-3.22) H 09/09/23 05:20 Cholesterol/HDL Ratio 6.61 mg/dL (0.0-4.40) H 09/09/23 05:20 Vitamin B12 455 pg/mL (232-1245) 09/08/23 12:14 Folate 3.3 ng/mL (4.8-37.3) L 09/09/23 05:20 TSH 3.24 uIU/mL (0.27-4.20) 09/08/23 12:14 Urine Color Yellow (Yellow) 09/09/23 06:15 Urine Appearance Slightly cloudy (CLEAR) 09/09/23 06:15 Urine pH 5 (5-7) 09/09/23 06:15 Ur Specific [place] 1.015 (1.005-1.030) 09/09/23 06:15 Urine Protein 3+ (Negative) H 09/09/23 06:15 Urine Glucose (UA) Trace (Normal) H 09/09/23 06:15 Urine Ketones Negative (Negative) 09/09/23 06:15 Urine Blood 2+ (Negative) H 09/09/23 06:15 Urine Nitrate Negative (Negative) 09/09/23 06:15 Urine Bilirubin Neg (Negative) 09/09/23 06:15 Prot Sulfosalicylic Acd Cancelled 09/09/23 00:30 Urine Urobilinogen Norm mg/dL (Negative) 09/09/23 06:15 Ur Leukocyte Esterase 1+ (Negative) H 09/09/23 06:15 Urine RBC 0-4 /hpf (0-2) H 09/09/23 06:15 Urine WBC 25-40 /hpf (0-5) H 09/09/23 06:15 Ur Squamous Epith Cells Rare /hpf (0-5) 09/09/23 06:15 Amorphous Sediment Not Reportable 09/09/23 06:15 Urine Bacteria 2+ /hpf (NONE) H 09/09/23 06:15 Urine Opiates Screen Negative ng/mL (Negative) 09/09/23 06:15 Ur Barbiturates Screen Negative ng/mL (Negative) 09/09/23 06:15 Ur Phencyclidine Scrn Negative ng/mL (Negative) 09/09/23 06:15 Ur Amphetamines Screen Negative ng/mL (Negative) 09/09/23 06:15 U Benzodiazepines Scrn Negative ng/mL (Negative) 09/09/23 06:15 Urine Cocaine Screen Negative ng/mL (Negative) 09/09/23 06:15 U Marijuana (THC) Screen Negative ng/mL (Negative) 09/09/23 06:15 Vitals Last Vital Signs Temp 98.9 F 09/12/23 07:59 Pulse 88 09/12/23 07:59 Resp 18 09/12/23 07:59 BP 154/53 09/12/23 08:54 Pulse Ox 97 09/12/23 07:59 O2 Del Method Room Air 09/12/23 07:59 Discharge Plan Discharge Patient Disposition: Home Condition: Stable Prescriptions: New hydralazine 100 mg tablet 100 mg PO TID Qty: 90 0RF isosorbide mononitrate 30 mg Tablet Extended Release 24 Hr 30 mg PO DAILY Qty: 30 0RF amlodipine 10 mg Tablet 10 mg PO DAILY Qty: 30 0RF ezetimibe 10 mg Tablet 10 mg PO DAILY Qty: 30 0RF Continued insulin lispro [Humalog KwikPen Insulin] 100 unit/mL insulin pen See Rx Instructions SUBCUT TID Rx Instructions: SS SUBCUT three times daily; clopidogrel 75 mg tablet 75 mg PO DAILY aspirin 81 mg tablet,delayed release (DR/EC) 81 mg PO DAILY (DME) Dexcom G6 Filter Tank Tender Helper Misc See Rx Instructions .Route Qty: 1 0RF Rx Instructions: Check BS continuously (DME) Dexcom G6 Sensor Device See Rx Instructions .ROUTE .COMPLEX Qty: 6 1RF Dose Instruction: CHANGE EVERY 10 DAYS Rx Instructions: CHANGE EVERY 10 DAYS (DME) Dexcom G6 Transmitter Device See Rx Instructions .ROUTE .COMPLEX Qty: 1 2RF Dose Instruction: CHANGE EVERY 90 DAYS Rx Instructions: CHANGE EVERY 90 DAYS atorvastatin 80 mg tablet 80 mg PO QPM venlafaxine 75 mg capsule,extended release 24hr 75 mg PO DAILY losartan 100 mg tablet 100 mg PO DAILY Synthroid 50 mcg tablet 50 mcg PO DAILY Lantus Solostar U-100 Insulin 100 unit/mL (3 mL) insulin pen 20 unit SUBCUT BID meclizine 12.5 mg tablet 12.5 mg PO TID PRN (Reason: Dizziness) calcium carbonate 500 mg calcium (1,250 mg) tablet 500 mg PO DAILY azelastine 137 mcg (0.1 %) aerosol,spray 2 spray INTRANASAL BID albuterol sulfate 90 mcg/actuation HFA aerosol inhaler 2 puff INHALATION Q6H PRN (Reason: Shortness Of Breath) metoprolol tartrate 25 mg tablet 25 mg PO BID cholecalciferol (vitamin D3) 1,250 mcg (50,000 unit) capsule 1,250 mcg PO Q7D Discharge Orders: Discharge Order (Routine); Ordered 09/12/23 Ordered By: Lydia Lira Referrals: Magdalena Song FNP [Primary Care Provider] - 09/14/23 8:45 am (APPOINTMENT WITH [facility]) Karlo Harrison MD [Physician] - 1 week (We have notified your physician's clinic of the need for a follow-up appointment to be scheduled. If you have not heard from them within the next 2 business days, please call them directly. ) Discharge Diet: As Directed, Cardiac and Diabetic Discharge Activity: Increase activity as tolerated and As per PT/OT instructions Patient Instructions: Hydralazine (By mouth), Amlodipine (By mouth), Isosorbide Mononitrate (By mouth), Ezetimibe (By mouth), Self Care Measures After a Stroke (DC), Hypertension (DC), Stroke (DC), Opioid Safety Discharge Attestations Time Spent in Discharge Care*: greater than 30 min Quality Metrics Clinical Quality Measures [ No reported AMI, CVA or VTE this stay] Coding Level of Care Code Acute Code for Chg Fwd Diagnoses Stroke I63.9 Uncontrolled hypertension I10 Acute kidney injury N17.9 UTI (urinary tract infection) N39.0 Diabetes type 2, uncontrolled Hyperlipemia, mixed E78.2 Hypothyroid E03.9
[2023-09-12 11:19] LABS: Glucose Point of Care 162 mg/dL (70-110)
[2023-09-12] MEDS: insulin lispro 100 unit/1 mL SUBCUT (11:31)
[2023-09-12 14:45] LABS: Methicillin-Resist S.aureu PCR NOT DETECTED (NOT DETECTED)
== END 2023-09-12 12:58 | disposition home or self-care (01) | DRG 65 ==
LOC: ER 13:56 → MEDSURG 15:02
PROVIDERS: Admitting Provider Student in an Organized Health Care Education/Training Program; Emergency Provider Family Medicine; PCP Nurse Practitioner Family; Visit Provider Internal Medicine
DX: I63.512 Cerebral infarction due to unspecified occlusion or stenosis of left middle cerebral artery (principal); G81.91 Hemiplegia, unspecified affecting right dominant side; N39.0 Urinary tract infection, site not specified; N17.9 Acute kidney failure, unspecified; R47.01 Aphasia; R29.810 Facial weakness; H53.8 Other visual disturbances; R29.706 NIHSS score 6; Z72.0 Tobacco use; I10 Essential (primary) hypertension; E11.65 Type 2 diabetes mellitus with hyperglycemia; E78.5 Hyperlipidemia, unspecified; E03.9 Hypothyroidism, unspecified; Z79.4 Long term (current) use of insulin; Z79.82 Long term (current) use of aspirin; Z79.02 Long term (current) use of antithrombotics/antiplatelets; F32.9 Major depressive disorder, single episode, unspecified
CPT/HCPCS: 36415; 36416; 51702; 70450; 70496; 70498; 70551; 71045; 80053; 80061; 80306; 81001; 82607; 82746; 82962; 83036; 83540; 83550; 83735; 84100; 84443; 85025; 85610; 85730; 87040; 87077; 87086; 87186; 87641; 92523; 92610; 93005; 93306; 94664; 96365; 96372; 96375; 97110; 97116; 97163; 97166; 97530; 99285; J0360; J1630; J1644; J1815; J2543; J3490; J7030; Q9967